=== PATIENT | female | born 1950 | race Caucasian/White ===

== ENCOUNTER 2020-08-25 18:30 | Emergency (ER) | payer OTHER, MEDICAID ==
[~2020-08-25] VITALS: Ht 152.4 cm; Wt 59.0 kg
[~2020-08-25 18:30] MED LIST: LISI-487 PO; LORA-476 PO; ZOLP10TA1 PO
[2020-08-25 18:59] VITALS: BP 150/90
--- NOTE | 2020-08-25 19:01 | NUR ---
TO LOBBY AMBULATORY A/W BED
--- NOTE | 2020-08-25 19:30 | NUR ---
PT. IS A 70 Y/O FEMALE THAT CAME INTO ED WITH C/O OF LEFT WRIST PAIN. SHE STATES THAT SHE FELL ON HER WRIST ON HER KITCHEN GROUND AROUND 2PM. PT. RATES HER PAIN 10/10 ON THE PAIN SCALE. PT. WRIST APPEARS TO BE SWOLLEN. SKIN IS PINK/WARM/DRY; AAOX4 WITH EVEN AND STEADY GAIT; HR EVEN AND REGULAR; PT DENIES ANY FEVER, CP, SOB, OR COUGH AT THIS TIME; PATIENT POSITIONED FOR COMFORT; HOB ELEVATED; BED DOWN. ER MD MADE AWARE OF PT STATUS. PMH: HTN, DM 2 ALLERGIES: NKA
--- NOTE | 2020-08-25 19:48 | NUR ---
Dr. Davenport examining patient.
[2020-08-25] MEDS ORDERED: MORPHINE SULFATE 4 MG/ML SYR IM ONE (19:50)
[2020-08-25] MEDS ORDERED: IBUP-2213 PO (20:13)
[2020-08-25] MEDS ORDERED: ACET-8386 PO (20:13)
--- NOTE | 2020-08-25 20:30 | NUR ---
Patient discharged with v/s stable. Written and verbal after care instructions given and explained. Patient alert, oriented and verbalized understanding of instructions. Ambulatory with steady gait. All questions addressed prior to discharge. ID band removed. Patient advised to follow up with PMD. Rx of IBUPROFEN AND HYDROCODONE/ACETAMINOPHEN given. Patient educated on indication of medication including possible reaction and side effects. Opportunity to ask questions provided and answered.
[2020-08-25 20:43] VITALS: BP 160/93
== END 2020-08-25 20:30 | disposition home or self-care (01) ==
LOC: MED 18:30
DX: S52.502A Unspecified fracture of the lower end of left radius, initial encounter for closed fracture (principal); S52.602A Unspecified fracture of lower end of left ulna, initial encounter for closed fracture; J45.909 Unspecified asthma, uncomplicated; I10 Essential (primary) hypertension; E07.9 Disorder of thyroid, unspecified; Z79.899 Other long term (current) drug therapy; Z98.890 Other specified postprocedural states; F17.200 Nicotine dependence, unspecified, uncomplicated; W19.XXXA Unspecified fall, initial encounter; Y93.89 Activity, other specified; Y92.89 Other specified places as the place of occurrence of the external cause; Y99.8 Other external cause status
CPT/HCPCS: 29105; 73110; 96372; 99283; J2270